=== PATIENT | female | born 1930 | race Caucasian/White ===

== ENCOUNTER → 2017-11-24 | Outpatient (CLI) | payer OTHER ==
[~2017-11-24] MED LIST: IOPAMIDOL (ISOVUE-300) 100 ML BTL ONE
== END ==
LOC: CIMAGING 08:18
PROVIDERS: ATTEND Internal Medicine
DX: R09.89 Other specified symptoms and signs involving the circulatory and respiratory systems (principal)
CPT/HCPCS: 70491; 71260; Q9967

== ENCOUNTER 2018-06-03 10:44 | Emergency (ER) | payer OTHER ==
--- NOTE | 2018-06-03 11:04 | EDPHY ---
H & P Stated Complaint: cough, fever, body aches 5 days Time Seen by Provider: 06/03/18 11:03 HPI/ROS: 87-year-old female presents complaining of cough, nasal congestion and postnasal drip. No fever today, possible fever and chills earlier this week. Most of the symptoms have been present for approximately Five days. Review of systems As per HPI General no fever no chills no weakness HEENT no eye pain no eye discharge. No eye redness, no sore throat Respiratory positive cough, no shortness of breath Cardiac no chest pain, no peripheral edema GI no abdominal pain, no diarrhea, no constipation, no nausea, no vomiting no flank pain, no hematuria, no dysuria Musculoskeletal no myalgias, no joint pain Heme no easy bruising, no easy bleeding Endo no polyuria, no polydipsia Skin no rashes, no pruritus Neuro no syncope, no dizziness, no headaches Psych is no suicidal ideation, no homicidal ideation Source: Patient Exam Limitations: No limitations - Personal History Current Tetanus/Diphtheria Vaccine: Unsure - Medical/Surgical History Hx Asthma: Yes Hx Chronic Respiratory Disease: No Hx Diabetes: No Hx Cardiac Disease: No Hx Renal Disease: No Hx Cirrhosis: No Hx Alcoholism: No Hx HIV/AIDS: No Hx Splenectomy or Spleen Trauma: No Other PMH: heart murmur - Family History Significant Family History: No pertinent family hx - Social History Smoking Status: Never smoked Alcohol Use: None Drug Use: None - Physical Exam Exam: 87-year-old female alert and oriented no acute distress nontoxic appearance, afebrile Very petite Alert and oriented nontoxic appearance, no acute distress afebrile Atraumatic normocephalic Extraocular muscles intact, anicteric Nares mild yellowish discharge Oropharynx mild erythema no tonsillar swelling no exudate no uvular deviation, tolerating own secretions Neck supple no lymphadenopathy Lungs clear to auscultation bilaterally Heart regular rate and rhythm Abdomen normoactive bowel sounds soft nontender Extremities no cyanosis clubbing or edema Skin no rash Constitutional: Initial Vital Signs Temperature (C) 37.0 C 06/03/18 10:51 Heart Rate 64 06/03/18 10:51 Respiratory Rate 16 06/03/18 10:51 Blood Pressure 172/81 H 06/03/18 10:51 O2 Sat (%) 96 06/03/18 10:51 O2 Delivery Mode Room Air Allergies/Adverse Reactions: Penicillins Allergy (Verified 06/03/18 10:54) Home Medications: Medication Instructions Recorded Advair 05/19/13 Lisinopril/Hydrochlorothiazide 05/19/13 Reclast 05/19/13 Azithromycin [Zithromax] 250 mg PO DAILY #6 tab 06/03/18 Benzonatate [Tessalon Pearles (RX)] 100 mg PO TID PRN #30 cap 06/03/18 Medical Decision Making - Diagnostics Imaging Results: Imaging Impressions Chest X-Ray 06/03/18 11:19 Impression: Probable bronchitis/airways disease with scarring and atelectasis without definite evidence of pneumonia. ED Course/Re-evaluation: Patient seen and evaluated for cough and cold symptoms. Chest x-ray negative, some atelectasis Influenza swab negative Impression Bronchitis, URI Plan Symptomatic care Azithromycin Lexi Hidalgo Follow-up with primary care provider in the next 3-7 days Return for difficulty breathing, high fever or pain Differential Diagnosis: Differential diagnosis considered but not limited to: uri, bronchitis, sinusitis, influenza, viral illness, pneumonia - Data Points Point of Care Test Results: Influenza PCR Flu Nasal Swab Collection Date 06/03/18 Flu Nasal Swab Collection Time 11:10 Influenza A Result Not Detected Influenza B Result Not Detected Departure - Departure Disposition: Home, Routine, Self-Care Clinical Impression: Bronchitis Condition: Good Instructions: Acute Bronchitis (ED) Referrals: Jennifer Rivas MD [Primary Care Provider] - As per Instructions Prescriptions: Azithromycin [Zithromax] 250 mg PO DAILY #6 tab Benzonatate [Tessalon Pearles (RX)] 100 mg PO TID PRN #30 cap PRN Reason: Cough, Moderate
[2018-06-03 12:42] VITALS: BP 158/102
== END 2018-06-03 12:41 | disposition home or self-care (01) ==
LOC: CED 10:44
DX: J40 Bronchitis, not specified as acute or chronic (principal)
CPT/HCPCS: 71046-PO

== ENCOUNTER → 2018-07-07 | Outpatient (CLI) | payer OTHER | LOC: BMCIMAGING 13:00 | PROVIDERS: ATTEND Internal Medicine Rheumatology | DX: Z13.820 Encounter for screening for osteoporosis (principal); M81.0 Age-related osteoporosis without current pathological fracture; Z78.0 Asymptomatic menopausal state ==